=== PATIENT | male | born 1950 | race Caucasian/White ===

== ENCOUNTER 2016-06-09 06:26 | Inpatient (IN) | payer MEDICARE, OTHER ==
[~2016-06-09] VITALS: Ht 170.2 cm; Wt 95.3 kg
[~2016-06-09 06:26] MED LIST: ADVAIR 250-501 EACH IH; ASPIRIN EC81 MG PO; CARDIZEM CD240 MG PO; CARDIZEM LA240 MG PO; COLACE100 MG PO; CYCLOBENZAPRINE10 MG PO; DALIRESP500 MCG PO; DULCOLAX5 MG PO; FLAGYL500 MG PO; FLOMAX0.4 MG PO; HYDROCODON-ACE1 EAC6 PO; IPRAT-ALBUT 0.5-3 ML NEB; LEVAQUIN750 MG PO; LIPITOR20 MG PO; NEURONTIN300 MG PO; NORCO 10-325 T1 EACH PO; PREDNISONE10 MG PO; PRINIVIL10 MG PO; PROAIR HFA8.5 GM IH; SPIRIVA18 MCG IH; SYMBICORT 16010.2 GM IH; ZESTRIL10 MG PO
--- NOTE | 2016-06-10 06:43 | NUR ---
PT HAD CHEST PAIN AT APPROXIMATELY 05:20. DID EKG SHOWED TACHYCARDIA, BUT OTHERWISE WAS A NORMAL EKG. PHONED DR. VINCENT AT APPROXIMATELY 05:40, HE ORDERED A TROPONIN TEST STAT. PT HAS NO MORE COMPLAINTS OF PAIN BY 05:30. THE PT STATED THAT THE "PAIN FELT LIKE A RUBBER BAND AROUND MY CHEST AREA."
== END 2016-06-12 12:45 | disposition home or self-care (01) | DRG 191 ==
LOC: ER 06:26 → MED 09:56 → ER 09:56 → MED 10:21
PROVIDERS: ADMIT Internal Medicine
DX: J44.0 Chronic obstructive pulmonary disease with (acute) lower respiratory infection (principal); J96.11 Chronic respiratory failure with hypoxia; J44.1 Chronic obstructive pulmonary disease with (acute) exacerbation; Z87.891 Personal history of nicotine dependence; D72.829 Elevated white blood cell count, unspecified; T38.0X5A Adverse effect of glucocorticoids and synthetic analogues, initial encounter; I11.9 Hypertensive heart disease without heart failure; G89.29 Other chronic pain; E78.5 Hyperlipidemia, unspecified; Z99.81 Dependence on supplemental oxygen; Z79.899 Other long term (current) drug therapy; Z85.828 Personal history of other malignant neoplasm of skin; Z87.01 Personal history of pneumonia (recurrent)
CPT/HCPCS: 36415; 87502; 94640; J1650

== ENCOUNTER 2016-06-09 06:26 | Emergency (ER) | payer MEDICARE, OTHER | END 2016-06-09 09:55 | disposition critical access hospital (66) | LOC: ER 06:26 | DX: J44.1 Chronic obstructive pulmonary disease with (acute) exacerbation (principal); I10 Essential (primary) hypertension; Z87.891 Personal history of nicotine dependence; Z79.899 Other long term (current) drug therapy | CPT/HCPCS: 36415; 87502; 96374 ==